=== PATIENT | female | born 1975 | race Caucasian/White ===

== ENCOUNTER 2024-01-19 17:29 | Emergency (ER) | payer SELFPAY ==
[~2024-01-19] VITALS: Ht 167.6 cm; Wt 85.0 kg
[2024-01-19 17:32] VITALS: TEMP 98.5; O2SAT 99
[2024-01-19] MEDS ORDERED: KETOROLAC 15MG/ML VIAL IM ONE (18:00)
[2024-01-19] MEDS ORDERED: ONDANSETRON 4MG ODT PO ONE (19:00)
[2024-01-19] MEDS ORDERED: NAPR-1176 MT (21:17)
[2024-01-19] MEDS ORDERED: LIDO700A15 TP (21:17)
[2024-01-19 21:30] VITALS: BP 125/72; PULSE 62; RESP 14
[2024-01-19] MEDS: KETOROLAC 15MG/ML VIAL IM NR (21:30)
[2024-01-19] MEDS: ONDANSETRON 4MG ODT PO NR (21:30)
== END 2024-01-19 22:33 | disposition home or self-care (01) ==
LOC: ER 18:29
DX: S50.11XA Contusion of right forearm, initial encounter (principal); S70.02XA Contusion of left hip, initial encounter; R10.32 Left lower quadrant pain; V98.8XXA Other specified transport accidents, initial encounter; Y93.89 Activity, other specified; Y92.89 Other specified places as the place of occurrence of the external cause; Y99.8 Other external cause status
CPT/HCPCS: 99284; 73502; 73090; Q0162; J1885